=== PATIENT | female | born 1955 | race Caucasian/White ===

== ENCOUNTER 2017-05-22 07:15 | Day surgery (SDC) | payer BC ==
[~2017-05-22] VITALS: Ht 167.6 cm; Wt 98.9 kg
[~2017-05-22 07:15] MED LIST: BYSTOLIC2.5 MG PO; CHROMIUM PIC1000 MCG PO; CYANOCOBALAM1000 MCG PO; IBUPROFEN200 M1 PO; MAGNESIUM400 M1 PO; TYLENOL EXTRA500 MG PO; VITAMIN C1000 MG PO; VITAMIN D-32000 UNI2 PO
== END 2017-05-22 09:36 | disposition home or self-care (01) ==
LOC: PAIN 07:15 → SDC 08:00 → PAIN 09:36
PROC: 3E0S33Z Introduction of Anti-inflammatory into Epidural Space, Percutaneous Approach (ICD-10-PCS; principal; 2017-05-22)
DX: M47.26 Other spondylosis with radiculopathy, lumbar region (principal); M47.812 Spondylosis without myelopathy or radiculopathy, cervical region; F41.9 Anxiety disorder, unspecified; Z98.1 Arthrodesis status; I10 Essential (primary) hypertension; E66.9 Obesity, unspecified; Z68.35 Body mass index [BMI] 35.0-35.9, adult; Z87.891 Personal history of nicotine dependence; Z88.8 Allergy status to other drugs, medicaments and biological substances
CPT/HCPCS: J1100; J2250; J3010